=== PATIENT | female | born 1995 | race Hispanic/Latino ===

== ENCOUNTER 2019-08-20 06:23 | Observation (INO) | payer SELFPAY ==
[~2019-08-20] VITALS: Ht 162.6 cm; Wt 65.9 kg
--- NOTE | 2019-08-20 13:04 | NUR ---
ASKED TO SEE PATIENT BY DR BATISTA. STATES PATIENT HAS REQUESTED HELP WITH [facility]. PATIENT WAS IN THE SHOWER. WILL RETURN LATER.
--- NOTE | 2019-08-20 13:26 | NUR ---
PATIENT BACK TO BED SITTING STRAIGHT UP TO EAT LUNCH. CALL BUTTON IN REACH. NO OTHER NEEDS AT THIS TIME.
--- NOTE | 2019-08-20 15:15 | NUR ---
SPOKE WITH PATIENT IN ROOM. PATIENT SPEECH IS VERY RAPID AND SOMETIMES SHE LAUGHS INAPPROPRIATELY. PATIENT LIVES ON THE STREETS WITH BOYFRIEND WHO SHE STATES IS A IV DRUG USER. THEY ARE IN [place] [facility] UNDER "[facility] SHE STATES THEY WANT TO GET TO [place]. SHE IS ORIGINALLY FROM [place]. STATES SHE CAN'T GO BACK THERE TO FAMILY. SHE STATES SHE USES METH, MARIJUANA AND DRINKS WINE DAILY. SHE STATES SHE USES DRUGS TO HELP WITH ANXIETY. SHE STATES SHE FEELS SHAKEY BECAUSE SHE HASN'T HAD WINE TODAY. SHE STATES SHE DRINKS "A LOT" OF WINE. SHE STATES SHE USES AN INHALER. SHE STATES SHE JUST LEARNED THAT SMOKING HER DRUGS IS BAD FOR HER ASTHMA. SHE STATES SHE HAS HAD ASTHMA "MY WHOLE LIFE". 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 SHE STATES THEY SIGNED UP FOR HOUSING ONCE, WERE ON THE LIST, BUT GOT "BUMPED OFF". SHE WOULD LIKE TO GET A HOUSE SOMEDAY. SHE STATES SHE "USED TO HAVE SEIZURES, BUT NOT ANYMORE". DENIES USING SEIZURE MEDICATION. SHE DENIES NEEDING ANY ASSISTANCE WITH AMBULATION. SHE STATES SHE USED TO HAVE A [employer] INSURANCE CARD, IT WAS LOST WHEN HER STUFF WAS STOLEN. SHE DOESN'T THINK SHE HAS INSURANCE NOW. SHE HAS A DOG. SHE STATES SHE USES HER FOOD STAMP CARD TO BUY WINE. SHE FEELS SHE EATS "OK. PROBABLY TOO MUCH JUNK". DISCUSSED WITH HER THAT HER CHOICES ARE PUTTING HER HEALTH AT RISK. SHE STATES SHE KNOWS THIS. SHE WANTS TO QUIT METH. OFFERED TO CALL AND HAVE ALCOHOL AND DRUG PEER TO PEER PROGRAM VISIT HER AND GIVE HER RESOURCES. SHE IS AGREEABLE TO THIS. DISCUSSED WITH HER IMPORTANCE OF MEDICATIONS AND HOW SMOKING AFFECTS ASHTHMA. SHE WAS WILLING TO LISTEN, HOWEVER LAUGHS ON OCCASION. VERY RAPID SPEECH. WHEN ASKED IF SHE HAS MONEY FOR MEDICATIONS SHE STATES SHE DOES, BUT IF SHE CAN GET THEM FREE IT WOULD BE HELPFUL. SHE STATES SHE CAN'T STAY IN [place] OR USE PUBLIC TRANSPORTATION BECAUSE SHE HAS A DOG. CALLED PEER TO PEER DENNIS [phone]. THEY STATE SOMEONE WILL COME MAKE CONTACT WITH PATIENT LATER TODAY.
--- NOTE | 2019-08-20 15:55 | NUR ---
PT REPORTING HEADACHE AND MODERATE ANXIETY. PT REPORTS SHE DRINKS COOKING WINE EVERY DAY AND FEELS SHE MAY BE WITHDRAWLING FROM ALCOHOLE I EDUCATED THE PT ON ASTMA MEDICATIONS AND SIDE EFFECT. PT STILL REQUESTED I CONTACT THE DOCTOR. DR BATISTA NOTIFIED. MOTRIN 600MG Q6P FOR HEADACHE WAS ORDERED. REQUESTED NO CIWA BE COMPLETED ON PT HE THINKS IT IS THE PTS GENERAL ANXIETY COMBINED WITH MEDICATIONS GIVEN AND DRUG DETOXING. WHEN THIS NURSE WENT BACK TO THE ROOM, THE PT WAS SLEEPING AND MODERATLY AROUSABLE BUT FELL DIRECTLY BACK ASLEEP AFTER ONE WORD ANSWERS TO MY QUESTIONS. CALL LIGHT IN REACH. WILL CONT TO MONITOR.
--- NOTE | 2019-08-20 16:09 | NUR ---
RT IN ADMINISTERING BREATHING TREATMENT. ALFONZO FROM [employer] TO BEDSIDE FOR PT EVALUATION.
--- NOTE | 2019-08-20 17:13 | NUR ---
PT REPORTING COUGHING AND PAIN IWTH COUGHING. PT REQUESTING BREATHING TREATMENT. EDUCATED ON NEB TREATMENT. DR BATISTA NOTIFIED OF PT COARSE LUNG SOUNDS AND PAINFUL COUGH. NEW ORDERS RECIEVED. MUSINEX AND MOTRIN ADMINSTERED.
--- NOTE | 2019-08-20 17:49 | NUR ---
ALFONZO SHAW FROM [facility] PEER SERVICES MET WITH PT. PT WANTING TO DO INPATIENT DETOX, ALFONZO WAS ABLE TO GET INPATIENT DETOX BED FOR FRIDAY IF PT MEDICALLY CLEARS, ALFONZO WILL PROVIDE TRANSPORTATION IF PT DC AFTER 1300. ADDITIONALLY PT HAS AN APPOINTMENT WITH [facility] ON FRIDAY AT 1030.
--- NOTE | 2019-08-20 17:53 | NUR ---
LANI FROM DETOX CALLED PER REQUEST AT NUMBER [phone] TO DISCUSS PT MEDICAL NEEDS WHEN DISCHARGED. QUESTIONS ANSWERED.
--- NOTE | 2019-08-20 18:39 | NUR ---
INSPECTOR PACKER GLASS CONTAINER REPORTED PT WIHT ANXIETY AND "WOUND UP" IN ROOM AFTER RECEIVED A CALL FROM HER [employer] ABOUT HER BOYFRIEND BEING MISSING AND STATING HE WAS GOING TO "HANG HIMSELF". THE PT REPORTS SHE DOES NOT KNOW HER BOYFRIEND IS LOCATED. CASH SHORTAGE INVESTIGATOR CALLED AND REPORTS SHE WILL GO TALK TO THE PATIENT ABOUT THE SITUATION. PT ALSO REPORTS INSOMNIA AND IS REQUESTING SOMETHING TO HELP HER SLEEP. DR BATISTA NOTIFIED. WILL PUT NEW ORDERS IN FOR ANXIETY AN INSOMNIA.
--- NOTE | 2019-08-20 20:00 | NUR ---
PATIENT SITTING IN BED WATCHING TV AND PLAYING ON THE COMPUTER NO NEEDS AT THIS TIME. CALL LIGHT IN REACH.
--- NOTE | 2019-08-20 20:00 | NUR ---
PATIENT RESTING IN BED, GIVEN A POPCYCLE, CARTON OF MILK, AND HER WATER GLASS FILLED. NO OTHER NEEDS AT THIS TIME. CALL LIGHT IN REACH.
--- NOTE | 2019-08-20 21:45 | NUR ---
MICROSTRATEGY ARCHITECT DEVELOPER ROUNDING NOTE. PT RESTING IN BED EATING A POPSCICLE. PT DENIES QUESTIONS OR CONCERNS AT THIS TIME. STATES THAT SINCE SHE'S BEEN HERE EVERYONE HAS BEEN "REALLY COOL" AND THAT SHE HASN'T "HAD ANY PROBLEMS". CALL LIGHT IN PT REACH. WHITE BOARD UPDATED.
--- NOTE | 2019-08-20 22:45 | NUR ---
PATIENT RESTING QUIETLY ON RIGHT SIDE, RESPIRATIONS REGULAR AND EVEN, CALL LIGHT IN REACH, EYES CLOSED.
--- NOTE | 2019-08-21 00:04 | NUR ---
PATIENT RESTING ON HER RIGHT SIDE, RESPIRATIONS REGULAR AND EVEN PULSE 114 PER PULSE OX, AND SATS 94% ON ROOM AIR. EYES CLOSED AND CALL LIGHT IN REACH.
--- NOTE | 2019-08-21 03:25 | NUR ---
PATIENT CONTINUES RESTING ON HER RIGHT SIDE, EYES CLOSED, RESPIRATIONS REGULAR AND EVEN JY=[id number] ON CPOX AND SATS 94%. CALL LIGHT IN REACH.
--- NOTE | 2019-08-21 03:25 | NUR ---
PATIENT HAD VITALS DONE AND ASKED FOR A BREATHING TREATMENT AND RT CALLED FOR TREATMENT.CALL LIGHT IN REACH.
--- NOTE | 2019-08-21 05:47 | NUR ---
PATIENT HAS RESTED WELL MOST OF THE NIGHT. PATIENT JUST GOT HER AM MEDS AND WAS 1PA TO THE BATHROOM AND BACK TO BED. PATIENT CURRENTLY TALKING TO HER MOM ON THE PHONE, BUT THE BOYFRIEND HAS BEEN CALLING AND UPSETING THE PATIENT BECAUSE SHE CAME TO THE HOSPITAL. I INFORMED THE PATIENT THAT SHE COULD HAVE IF SHE DIDN'T COME INTO THE HOSPITAL AND SHE ALREADY HAS ENOUGH ANXIETY THAT SHE NEEDS TO NOT BE TALKING WITH ANYONE THAT IS UPSETING HER AND SHE NEEDS TO MAKE HER OWN GOOD DECISIONS FOR HER SELF RIGHT NOW AND STOP LISTENING TO THOSE WHO KEEP MAKING BAD DECISIONS FOR HER AND GOT HER IN THIS MESS. PATIENT VERBALIZED UNDERSTANDING. CALL LIGHT IN REACH.
--- NOTE | 2019-08-21 07:21 | NUR ---
RECIEVED BEDSIDE REPORT FROM ARMEN REZA. PT SLEEPING SOUNDLY, BREATHING EVEN AND UNLABORED. DID NOT WAKE DURING REPORT. IVF RUNNING PER ORDER. VOIDING WELL, EATING WELL. PT AXIOUS, BUT READY TO GO TO TREATMENT. TRANSPORTATION AVAILABLE AT 1300.
--- NOTE | 2019-08-21 07:56 | NUR ---
PATIENT IN BED RESTING WITH EYES CLOSED. CALL LIGHT IN REACH. NO FURTHER NEEDS AT THIS TIME.
[2019-08-21] MEDS ORDERED: AZITHROMYCIN250 MG PO (09:40)
[2019-08-21] MEDS ORDERED: VITAMIN B-1100 M1 PO (09:41)
[2019-08-21] MEDS ORDERED: QUETIAPINE FUMA25 MG PO (09:41)
[2019-08-21] MEDS ORDERED: MUCINEX600 MG PO (09:41)
[2019-08-21] MEDS ORDERED: THERA TABLET400 MCG PO (09:42)
[2019-08-21] MEDS ORDERED: PREDNISONE20 MG PO (09:42)
[2019-08-21] MEDS ORDERED: VENTOLIN HFA18 GM INH ×2 (09:48→10:33)
--- NOTE | 2019-08-21 10:18 | NUR ---
PT IS OUT OF THE SHOWER. SHE WAS ABLE TO SHOWER AND DRESS INDEPENDENTLY. PT IS VERY RESTLESS AND FIDGETY IN ROOM. PT IS EXCITED TO GO TO DETOX THIS AFTERNOON. STATES AGAIN THAT SHE WANTS OFF THE METH. PT HAS NOT REACHED HER BOYFRIEND, BUT SHE HAS LEFT HIM MESSAGES.
--- NOTE | 2019-08-21 10:30 | NUR ---
PATIENT SHOWERED IND. PATIENT NOW BACK TO BED. WARM BLANKET GIVEN. CALL LIGHT IN REACH. NO FURTHER NEEDS AT THIS TIME.
--- NOTE | 2019-08-21 12:19 | NUR ---
PATIENT STATES THAT SHE WAS NOT ON ANY ROUTINE MEDICATIONS PRIOR TO ADMIT.
--- NOTE | 2019-08-21 13:30 | NUR ---
PATIENT SITTING ON EDGE OF BED WATCHING TV WAITING FOR RIDE. CALL LIGHT IN REACH. NO FURTHER NEEDS AT THIS TIME.
--- NOTE | 2019-08-21 14:15 | NUR ---
PT DISCHARGE COMPLETE. DISCUSSED FOLLOW UP, ESTABLISHING CARE WITH PCP, REHAB, MEDICATIONS, WHEN TO CALLL THE DR[facility] FILLED REQUIRED PRESCRIPTIONS FOR PT. PEER MENTOR ARRIVED TO TRANSPORT PT TO DETOX/REHAB FACILITY. ALL PERSONAL BELONGINGS SENT WITH PT.
== END 2019-08-21 14:15 | disposition home or self-care (01) ==
LOC: ED 06:23 → MS 06:24
PROVIDERS: ADMIT Student in an Organized Health Care Education/Training Program
DX: J45.901 Unspecified asthma with (acute) exacerbation (principal); F41.9 Anxiety disorder, unspecified; F12.10 Cannabis abuse, uncomplicated; F15.10 Other stimulant abuse, uncomplicated; Z59.0 Homelessness; Z79.899 Other long term (current) drug therapy; Z72.0 Tobacco use
CPT/HCPCS: 36415; 36600; 71045; 80048; 80053; 82803; 83735; 84703; 85025; 85379; 87502; 94640; 94645; 94762; 96374; 96376; 99285-25; A9270; G0378; J2920; J2930; J7121; J7512

== ENCOUNTER 2019-09-11 23:07 | Emergency (ER) | payer MEDICARE ==
[~2019-09-11] VITALS: Ht 162.6 cm; Wt 65.9 kg
[~2019-09-11 23:07] MED LIST: AZITHROMYCIN250 MG PO; MUCINEX600 MG PO; PREDNISONE20 MG PO; QUETIAPINE FUMA25 MG PO; THERA TABLET400 MCG PO; VENTOLIN HFA18 GM INH; VITAMIN B-1100 M1 PO
--- OUTSIDE RECORDS SUMMARY | 2019-09-11 23:10 | XMS ---
PreManage Notification: KAYLEEN COTTO Security Title Attorney Events No recent Security Events currently on file CRITERIA MET - [facility] [place] - 2 Visits in 30 Days CARE PROVIDERS There are no care providers on record at this time. Jhonathan has no Care Guidelines for this patient. Care History Medical/Surgical 08/23/2019 [facility] - PATIENT MET WITH [facility] WHILE INPATIENT AT [facility] AT PATIENT REQUEST. - PLEASE CONTACT [facility] IF PATIENT REQUESTS FURTHER CONTACT IN THE ED.- [phone]. 08/23/2019 [facility] - PATIENT MET WITH [facility] WHILE INPATIENT AT [facility] AT PATIENT REQUEST. - PLEASE CONTACT [facility] IF PATIENT REQUESTS FURTHER CONTACT IN THE ED.- [phone]. E.D. VISIT COUNT (12 MO.) 1 [facility] [place] 3 [facility]. 2 [facility]. TOTAL 6 NOTE: Visits indicate total known visits. ED/UCC VISIT TRACKING (12 MO.) 09/11/2019 23:08 [facility] TYPE: Emergency COMPLAINT: - FLU SYMPTOMS 08/20/2019 06:23 [facility] [place] TYPE: Emergency COMPLAINT: - SOB 01/09/2019 22:48 [facility]. TYPE: Emergency COMPLAINT: - RT ARM ABSCESS DIAGNOSES: 1. Oth disrd of the skin and subcutaneous tissue 1. Cutaneous abscess of right upper limb 1. Cutaneous abscess of right upper limb 2. Nicotine dependence, unspecified, uncomplicated 2. Cutaneous abscess of right upper limb 2. Nicotine dependence, unspecified, uncomplicated 3. Other stimulant abuse, uncomplicated 3. Nicotine dependence, unspecified, uncomplicated 3. Other stimulant abuse, uncomplicated 4. Latex allergy status 4. Latex allergy status 4. Other stimulant abuse, uncomplicated 5. Encounter for immunization 5. Latex allergy status 5. Encounter for immunization 6. Encounter for immunization 6. Homelessness 6. Homelessness 7. Homelessness 11/30/2018 19:58 [facility] TYPE: Emergency COMPLAINT: - DISCHARGED TODAY FROM [facility] TIRED DIAGNOSES: - Other fatigue - Proc/trtmt not crd out d/t pt lv bef seen by [facility] care prov - Other fatigue - Other fatigue - Proc/trtmt not crd out d/t pt lv bef seen by [facility] care prov - Proc/trtmt not crd out d/t pt lv bef seen by [facility] care prov 11/29/2018 13:05 [facility] TYPE: Emergency COMPLAINT: - SOB 11/10/2018 10:25 [facility] [place] TYPE: Emergency COMPLAINT: - ABDOMINAL PAIN/HEADACHE DIAGNOSES: - Nausea with vomiting, unspecified - Homelessness - Calculus of gallbladder w/o cholecystitis w/o obstruction - Homelessness - Calculus of gallbladder w/o cholecystitis w/o obstruction - Nausea with vomiting, unspecified - Urinary tract infection, site not specified - Urinary tract infection, site not specified - Unspecified asthma, uncomplicated - Nicotine dependence, cigarettes, uncomplicated - Nausea with vomiting, unspecified - Bipolar disorder, unspecified - Generalized abdominal pain - Epilepsy, unsp, not intractable, without status epilepticus - Bipolar disorder, unspecified - Urinary tract infection, site not specified - Epilepsy, unsp, not intractable, without status epilepticus - Epilepsy, unsp, not intractable, without status epilepticus - Allergy to other foods - Calculus of gallbladder w/o cholecystitis w/o obstruction - Nicotine dependence, cigarettes, uncomplicated - Unspecified asthma, uncomplicated - Bipolar disorder, unspecified - Homelessness - Other moth exterminator (current) drug therapy - Latex allergy status - Allergy to other foods - Latex allergy status - Unspecified asthma, uncomplicated - Latex allergy status - Allergy to other foods - Other moth exterminator (current) drug therapy - Nicotine dependence, cigarettes, uncomplicated - Other fpc (current) drug therapy INPATIENT VISIT TRACKING (12 MO.) 08/20/2019 06:24 [facility] TYPE: Observation COMPLAINT: - ASTHMA DIAGNOSES: - Other stimulant abuse, uncomplicated - Other fpc (current) drug therapy - Tobacco use - Homelessness - Cannabis abuse, uncomplicated - Anxiety disorder, unspecified - Unspecified asthma with (acute) exacerbation 11/29/2018 15:41 [facility] TYPE: Medical Surgical COMPLAINT: - ASTHMA EXACERBATION DIAGNOSES: - Drug abuse counseling and surveillance of drug abuser - Homelessness - Nicotine dependence, cigarettes, uncomplicated - Sleep apnea, unspecified - Unspecified asthma with (acute) exacerbation - Bipolar disorder, unspecified - Sleep apnea, unspecified - Other moth exterminator (current) drug therapy - Allergy to other foods - Unspecified viral hepatitis C without hepatic coma - Other moth exterminator (current) drug therapy - Epilepsy, unsp, not intractable, without status epilepticus - Nicotine dependence, cigarettes, uncomplicated - Nicotine dependence, cigarettes, uncomplicated - Elevated white blood cell count, unspecified - Drug abuse counseling and surveillance of drug abuser - Drug abuse counseling and surveillance of drug abuser - Other stimulant abuse with intoxication, unspecified - Calculus of gallbladder w/o cholecystitis w/o obstruction - Oth symptoms and signs involving the circ and resp systems - Bipolar disorder, unspecified - Epilepsy, unsp, not intractable, without status epilepticus - Unspecified viral hepatitis C without hepatic coma - Tachycardia, unspecified - Unspecified viral hepatitis C without hepatic coma - Oth symptoms and signs involving the circ and resp systems - Radiographic dye allergy status - Hypoxemia - Oth symptoms and signs involving the circ and resp systems - Other stimulant abuse with intoxication, unspecified - Allergy to other foods - Radiographic dye allergy status - Homelessness - Calculus of gallbladder w/o cholecystitis w/o obstruction - Tachycardia, unspecified - Hypoxemia - Unspecified asthma with (acute) exacerbation - Homelessness - Other fpc (current) drug therapy - Radiographic dye allergy status - Bipolar disorder, unspecified - Sleep apnea, unspecified - Epilepsy, unsp, not intractable, without status epilepticus - Altered mental status, unspecified - Elevated white blood cell count, unspecified - Unspecified asthma with (acute) exacerbation - Allergy to other foods - Other stimulant abuse with intoxication, unspecified - Hypoxemia - Calculus of gallbladder w/o cholecystitis w/o obstruction - Altered mental status, unspecified - Tachycardia, unspecified - Altered mental status, unspecified - Elevated white blood cell count, unspecified [email or web address]
== END 2019-09-12 02:23 | disposition home or self-care (01) ==
LOC: ED 23:07
DX: K29.00 Acute gastritis without bleeding (principal); F17.200 Nicotine dependence, unspecified, uncomplicated
CPT/HCPCS: 74177; 80053; 81001; 83690; 84703; 85025; 96361; 99284-25; J2405; J2550; J7030; Q9967